=== PATIENT | male | born 1965 | race African-American/Black ===

== ENCOUNTER 2018-08-16 16:01 | Emergency (ER) | payer MEDICAID, OTHER ==
[~2018-08-16] VITALS: Ht 167.6 cm; Wt 83.5 kg
[~2018-08-16 16:01] MED LIST: ALBUTEROL SULF8.5 GM INH; AZITHROMYCIN250 MG ORAL; MEDROL DOSEPAK4 MG ORAL
[2018-08-16] MEDS ORDERED: BENAZEPRIL HCL5 MG ORAL ×2 (16:11→17:06)
[2018-08-16] MEDS ORDERED: GLIMEPIRIDE2 MG ORAL ×2 (16:11→17:06)
[2018-08-16] MEDS ORDERED: METFORMIN HCL500 M4 ORAL ×2 (16:11→17:06)
--- NOTE | 2018-08-16 16:26 | NUR ---
ED Nurse Note: PT WALKED IN TO ER TODAY FROM HOME. AOX4. PT C/O BILATERAL EARACHE, PAIN 4/10 X 3 DAYS AGO. PT DENIES ANY CHANGES IN HEARING BUT C/O HEARING A "BUZZING NOISE." PT DENIES ANY DISCHARGE OR BLEEDING FROM EARS. PT STATES HE ALSO NEEDS REFILLS OF MEDICATIONS: METFORMIN, GLIMEPIRIDE, AND BENAZEPRIL.
[2018-08-16 16:27] VITALS: BP 158/86
--- NOTE | 2018-08-16 16:45 | NUR ---
ED Nurse Note: EMT AT BEDSIDE FOR EAR IRRIGATION
[2018-08-16 17:04] VITALS: BP 138/78
--- NOTE | 2018-08-16 17:13 | NUR ---
ED Nurse Note: PT SITTING PEACEFULLY IN BED IN NAD. AOX4. PRESCRIPTIONS AND DISCHARGE PAPERWORK EXPLAINED TO PT. PT VERBALIZES UNDERSTANDING AND ALL QUESTIONS ANSWERED. PRESCRIPTIONS AND DISCHARGE PAPERWORK GIVEN TO PT AND ID WRISTBAND REMOVED. PT WALKED OUT OF ER WITH STEADY GAIT AND ALL BELONGINGS.
--- NOTE | 2018-08-16 22:02 | Emergency Room Report ---
History of Present Illness General Chief Complaint: Earache Source: Patient Present Illness HPI 52-year-old male presents ED complaining of right ear pain. Started 3 days ago. Pain is dull, 5 out of 10, nonradiating. States also notes ringing sensation in his ears. Denies any hearing changes. Denies fevers or chills. Denies cough. No other aggravating relieving. Denies any other associated symptoms Allergies: Coded Allergies: No Known Allergies (Unverified , 12/01/14) Patient History Past Medical History: DM, HTN Pertinent Family History: none Social History: Denies: smoking, alcohol use, drug use Immunizations: UTD Reviewed Nursing Documentation: PMH: Agreed; PSxH: Agreed Nursing Documentation-PMH Hx Hypertension: Yes Hx Diabetes: Yes - TYPE 2 Review of Systems All Other Systems: negative except mentioned in HPI Physical Exam Vital Signs Date Time Temp Pulse Resp B/P (MAP) Pulse Ox O2 Delivery O2 Flow Rate FiO2 08/16/18 16:05 97.5 91 16 176/94 98 Room Air Sp02 EP Interpretation: reviewed, normal General Appearance: no apparent distress, alert, GCS 15, non-toxic Head: normocephalic Eyes: bilateral eye normal inspection, bilateral eye PERRL ENT: other - cerumen impaction R ear Neck: normal inspection Respiratory: chest non-tender, lungs clear, normal breath sounds, speaking full sentences Cardiovascular #1: normal inspection Gastrointestinal: normal inspection Rectal: deferred Genitourinary: normal inspection Musculoskeletal: normal inspection Neurologic: normal inspection, oriented x3 Psychiatric: normal inspection Skin: normal inspection Lymphatic: normal inspection Medical Decision Making Diagnostic Impression: Primary Impression: Tinnitus of right ear Additional Impression: Cerumen impaction Qualified Codes: H61.21 - Impacted cerumen, right ear ER Course Hospital Course 52-year-old male presents with right ear pain, ringing of ears Differential diagnoses include: TM perforation, otitis externa, otitis media, vestibulitis/labryntitis Clinical course Patient placed on stretcher. After initial history, physical exam reveals a male in no acute distress. Left TM unremarkable. Right ear significant cerumen impaction unable to visualize right TM Discussed findings with patient. Ear irrigation performed with cerumen removed. On repeat exam right TM is also unremarkable Discussed findings with patient. Patient also noting some ringing in the ears. We will provide ENT referral Patient is also asking for refills of his diabetic medications. I will provide him with the refills Diagnosis - tinnitus, cerumen impaction R ear Stable and discharged to home. Followup with PMD/ENT. Return to ED if symptoms recur or worsen Last Vital Signs Date Time Temp Pulse Resp B/P (MAP) Pulse Ox O2 Delivery O2 Flow Rate FiO2 08/16/18 17:04 98.2 82 16 138/78 100 Room Air Status: improved Disposition: HOME, SELF-CARE Condition: Stable Scripts Metformin Hcl (METFORMIN HCL ER) 500 Mg Tab.er.24 500 MG ORAL BID for 30 Days, TAB Prov: Cassius Contreras MD 08/16/18 Benazepril Hcl (BENAZEPRIL HCL) 5 Mg Tablet 20 MG ORAL DAILY for 30 Days, TAB Prov: Cassius Contreras MD 08/16/18 Glimepiride (GLIMEPIRIDE) 2 Mg Tablet 2 MG ORAL BEFORE BREAKFAST for 30 Days, TAB Prov: Cassius Contreras MD 08/16/18 Referrals: NOT CHOSEN IPA/,REFERRING (PCP) Luís Flanagan MD Patient Instructions: Cerumen Impaction, Tinnitus Cassius Contreras MD Aug 16, 2018 22:02
== END 2018-08-16 17:10 | disposition home or self-care (01) ==
LOC: EMR 16:41
DX: H93.11 Tinnitus, right ear (principal); H61.21 Impacted cerumen, right ear; E11.9 Type 2 diabetes mellitus without complications; I10 Essential (primary) hypertension
CPT/HCPCS: 99282